=== PATIENT | female | born 1960 | race Caucasian/White ===

== ENCOUNTER 2020-05-12 19:11 | Emergency (ER) | payer OTHER, SELFPAY ==
--- NOTE | ~2020-05-12 | XR_ITS ---
EXAMINATION: XR ANKLE, LEFT CLINICAL INFORMATION: Pain and swelling status post fall COMPARISON: None TECHNIQUE: AP, lateral, and mortise views of the left ankle. FINDINGS: No acute fracture or dislocation. Ankle mortise is congruent. Talar dome intact. Assessment for ankle joint effusion limited by obliquity. Soft tissue swelling anterior and lateral to the ankle. XR/XR ankle LT min 3V IMPRESSION: No acute fracture or dislocation. Soft tissue swelling about the ankle.
[2020-05-12 19:17] VITALS: BP 152/81; PULSE 105; RESP 16; TEMP 36.7; O2SAT 98; BMI 24.3
[2020-05-12 21:00] VITALS: BP 147/63; PULSE 88; RESP 16
--- NOTE | 2020-05-12 21:02 | PC.NURSE ---
Pt transferred from the waiting room into room 12. Pt is CAOx4, speaking full sentences, primarily Italian speaking only. Pt unable to weight bare on left ankle due to 10/10 pain/swelling. Pt assisted into bed into POC, left ankle elevated, ice applied. Awaiting primary MD stoddard.
--- NOTE | 2020-05-12 21:34 | ED.LOWEXIN ---
HPI - Extremity Injury (Lower) General Chief Complaint: Fall Stated Complaint: Fall Time Seen by Provider: 05/12/20 21:33 Source: patient and student ministry pastor Mode of arrival: ambulatory History of Present Illness HPI Narrative: This is a 59-year-old female who slipped and fell with poor lighting and patient recalls likely inversion of left ankle with pain and swelling afterwards. She denies head strike or LOC and otherwise feels well other than the pain at the left ankle. Related Data Allergies Allergy/AdvReac Type Severity Reaction Status Date / Time topiramate [From Topamax] Allergy Rash Verified 05/12/20 19:20 Review of Systems Review of Systems: Pertinent positives and negatives as stated in HPI 10 point review systems is otherwise negative. [facility] Past Medical History Source: nursing notes reviewed Medical History Diabetes Social History Social History Advance Directives: No Advance Directives Information Provided: Yes Physical Exam Vital Signs: Vital Signs: Last Vital Signs Temp 98.1 F 05/12/20 19:17 Pulse 82 05/12/20 22:20 Resp 16 05/12/20 22:20 BP 127/50 L 05/12/20 22:20 Pulse Ox 98 05/12/20 19:17 Body Mass Index 24.3 VITAL SIGNS: Reviewed. GENERAL: Well developed, well nourished, in no acute distress. HEAD: Normocephalic/atraumatic, OROPHARYNX: no oral lesions noted, posterior pharynx clear NECK: Supple, no adenopathy LUNGS: Normal breath sounds. No adventitious sounds or accessory muscle use. SpO2<98> CARDIOVASCULAR: Regular rate and rhythm without noted murmurs ABDOMEN: Soft, non-tender, non-distended with bowel sounds. LEFT ANKLE: Tenderness to palpation over the lateral and medial malleolus, swelling noted to the lateral malleolus without ecchymosis, palpable DP/PT, capillary refill less than 3 seconds, sensation intact SKIN: Inspection of the skin reveals no rashes NEUROLOGIC: Alert and oriented x 4. Course Course Course Narrative: This is a 59-year-old female with history and clinical presentation consistent with slip and fall with ankle sprain without head strike or loss of consciousness. X-rays are negative for evidence of fracture or dislocation and these findings were discussed with the patient as well as the plan at bedside with ornamental plasterer helper. She was discharged in stable condition. Discharge Plan Discharge Clinical Impression: Left ankle sprain Qualifiers: Encounter type: initial encounter Involved ligament of ankle: unspecified ligament Qualified Code(s): S93.402A - Sprain of unspecified ligament of left ankle, initial encounter Patient Disposition: Home, Self-Care Instructions: Ankle Sprain (ED), Crutch Instructions (ED) Additional Instructions: 1. Tylenol 1000 mg, por v?a oral, cada 6 horas seg?n sea necesario para controlar el dolor. No exceda los 4000 mg en 24 horas. 2. Ibuprofeno 400 mg, por v?a oral con leche o alimentos, cada 6 horas seg?n sea necesario para controlar el dolor. 3. Aplique hielo sobre la piel no expuesta anitra 15 a 20 minutos, de 3 a 4 veces al d?a para un control adicional del dolor. 4. Use muletas ling se le indique e intente soportar el peso sobre el pie ольга tanto ling sea posible. 5. Brook un seguimiento con barnett proveedor de atenci?n primaria en los pr?ximos 1-2 d?as para adam reevaluaci?n. No dude en volver al servicio de urgencias si experimenta un empeoramiento juliane de shea s?ntomas. Referrals: Physician,Unknown [Primary Care Provider] - 2 days Interventions: ED Discharge Assessment Last Done: 05/12/20 22:11 Discharge Date/Time: 05/12/20 22:20 Print Language: Wolof
[2020-05-12] MEDS: Ketorolac Tromethamine 15 MG/ML VIAL IM (21:46)
[2020-05-12] MEDS: Acetaminophen 325 MG TABLET 975 MG PO (21:47)
--- NOTE | 2020-05-12 21:49 | PC.NURSE ---
Pt medicated per MAR.
[2020-05-12 22:20] VITALS: BP 127/50; PULSE 82; RESP 16
== END 2020-05-12 22:20 | disposition home or self-care (01) ==
PROVIDERS: Emergency Provider Student in an Organized Health Care Education/Training Program
DX: S93.402A Sprain of unspecified ligament of left ankle, initial encounter (principal); W01.0XXA Fall on same level from slipping, tripping and stumbling without subsequent striking against object, initial encounter; Y93.9 Activity, unspecified; Y92.019 Unspecified place in single-family (private) house as the place of occurrence of the external cause; Y99.9 Unspecified external cause status
CPT/HCPCS: 73610; 96372; 99283; 99284; J1885